=== PATIENT | female | born 1960 | race Caucasian/White ===

== ENCOUNTER 2017-03-25 10:58 | Emergency (ER) | payer OTHER ==
[~2017-03-25] VITALS: Ht 167.6 cm; Wt 97.5 kg
[2017-03-25] MEDS ORDERED: GEODON80 MG PO (11:05)
[2017-03-25] MEDS ORDERED: REMERON15 M2 PO (11:06)
[2017-03-25] MEDS ORDERED: PROPRANOLOL 1010 MG PO (11:06)
[2017-03-25] MEDS ORDERED: LEXAPRO20 MG PO (11:06)
[2017-03-25] MEDS ORDERED: SYNTHROID88 MCG PO (11:07)
[2017-03-25] MEDS ORDERED: FLEXERIL PO (12:51)
[2017-03-25] MEDS ORDERED: NORCO 5-325 TA1 EACH PO (12:51)
[2017-03-25] MEDS ORDERED: IBUPROFEN 600600 M1 PO (12:51)
[2017-03-25 13:02] VITALS: BP 120/76
== END 2017-03-25 13:03 | disposition home or self-care (01) ==
LOC: ER 10:58
DX: S39.012A Strain of muscle, fascia and tendon of lower back, initial encounter (principal); F31.9 Bipolar disorder, unspecified; F41.9 Anxiety disorder, unspecified; E03.9 Hypothyroidism, unspecified; F17.210 Nicotine dependence, cigarettes, uncomplicated; Z88.8 Allergy status to other drugs, medicaments and biological substances; W01.0XXA Fall on same level from slipping, tripping and stumbling without subsequent striking against object, initial encounter; Y93.89 Activity, other specified; Y92.59 Other trade areas as the place of occurrence of the external cause; Y99.8 Other external cause status

== ENCOUNTER 2017-07-24 08:45 | Emergency (ER) | payer OTHER ==
[~2017-07-24] VITALS: Ht 167.6 cm; Wt 89.8 kg
[~2017-07-24 08:45] MED LIST: FLEXERIL PO; GEODON80 MG PO; IBUPROFEN 600600 M1 PO; LEXAPRO20 MG PO; NORCO 5-325 TA1 EACH PO; PROPRANOLOL 1010 MG PO; REMERON15 M2 PO; SYNTHROID88 MCG PO
[2017-07-24] MEDS ORDERED: HYDROCODONE-AP1 EAC6 PO (09:01)
== END 2017-07-24 09:31 | disposition home or self-care (01) ==
LOC: ER 08:45
DX: J40 Bronchitis, not specified as acute or chronic (principal); S23.41XA Sprain of ribs, initial encounter; X58.XXXA Exposure to other specified factors, initial encounter; F31.9 Bipolar disorder, unspecified; F41.9 Anxiety disorder, unspecified; E03.9 Hypothyroidism, unspecified; Y93.89 Activity, other specified; Y92.89 Other specified places as the place of occurrence of the external cause; Y99.8 Other external cause status; Z88.0 Allergy status to penicillin; Z88.8 Allergy status to other drugs, medicaments and biological substances